=== PATIENT | female | born 1950 | race Two or more races ===

== ENCOUNTER 2018-04-07 16:19 | Inpatient (IN) | payer MEDICARE ==
[~2018-04-07] VITALS: Ht 162.6 cm; Wt 80.6 kg
--- NOTE | 2018-04-07 16:47 | NUR ---
PT TO ED WITH FAMILY FOR RIGHT SIDED ABD PAIN THAT RADIATES TO R FLANK X 1 WEEK, WORSE LAST NIGHT AND THIS AM. CONNECTED TO ALL MONITORS. VSS. MD TO BEDSIDE FOR ASSESSMENT. CALL LIGHT WITHIN REACH NO NEESD AT THIS TIME. AWAITING ORDERS.
[2018-04-07] MEDS ORDERED: ONDANSETRON 2MG/ML, 2ML ONE (16:53)
[2018-04-07] MEDS ORDERED: ONDANSETRON 2MG/ML, 2ML IVPush ONE (17:00)
[2018-04-07] MEDS ORDERED: SODIUM CHLORIDE FLUSH 10ML SYR IVF ONE (17:00)
--- NOTE | 2018-04-07 17:01 | NUR ---
PT TO IMAGING.
--- NOTE | 2018-04-07 17:10 | NUR ---
PT BACK FROM IMAGING. US AT BEDSIDE.
--- NOTE | 2018-04-07 17:24 | NUR ---
US COMPLETE. IV PLACED. LABS DRAWN. MEDICATED PER MAR. FAMILY IS HELPING PT TO RESTROOM FOR UA COLLECTION. VSS. NO NEEDS AT THIS TIME.
[2018-04-07 17:28] LABS: MEAN CORPUSCULAR HEMOGLOBIN 32.6 pg (27.0-34.8); MEAN CORPUSCULAR VOLUME 95.8 fL (80-100); MEAN PLATELET VOLUME 8.8 fL (7.4-10.4); PLATELET COUNT 156 x10^3/uL (130-400); RED BLOOD COUNT 4.59 x10^6/uL (3.82-5.3); RED CELL DISTRIBUTION WIDTH 13.3 % (9.6-15.2)
[2018-04-07 17:40] LABS: ALANINE AMINOTRANSFERASE 113 U/L (12-78); ALBUMIN 3.2 g/dL (3.4-5.0); ANION GAP 9 mmol/L (5-15); CHLORIDE 108 mmol/L (98-107); CREATININE 1.32 mg/dL (0.55-1.02)
[2018-04-07 17:42] LABS: ALKALINE PHOSPHATASE 104 U/L (45-117); BILIRUBIN,TOTAL 1.4 mg/dL (0.2-1.0); TOTAL PROTEIN 7.1 g/dL (6.4-8.2)
[2018-04-07 17:44] LABS: MD YES
[2018-04-07 17:47] LABS: BAND#(MANUAL) 9.79 x10^3/uL; BANDS%(MANUAL) 36 % (0-7); LYMPH#(MANUAL) 0.27 x10^3/uL (1-3.4); LYMPHS% (MANUAL) 1 % (22-44); METAMYELOCYTES# (MANUAL) 0.82 x10^3/uL (0-0); METAMYELOCYTES% (MANUAL) 3 % (0-1); MONOS#(MANUAL) 1.36 x10^3/uL (0.3-2.7); MONOS% (MANUAL) 5 % (2-9); MYELOCYTES# (MANUAL) 0.27 x10^3/uL (0-0); MYELOCYTES% (MANUAL) 1 % (0-0); SEG#(MANUAL) 14.69 x10^3/uL (1.8-6.8); SEGS% (MANUAL) 54 % (42-75)
[2018-04-07 17:48] LABS: <PLATELET ESTIMATE> ADEQUATE; <RBC MORPHOLOGY> NORMAL
[2018-04-07 17:49] LABS: <PLT MORPHOLOGY> NORMAL PLT MORPH
[2018-04-07 17:50] LABS: TOXIC GRAN 1+
--- NOTE | 2018-04-07 18:00 | NUR ---
LAB TO BEDSIDE TO COLLECT BC. UA COLLECTED AND SENT. FAMILY AT BEDSIDE. CONNECTED TO MONITORS. CALL LIGHT WITHIN REACH. VSS. NO NEEDS AT THIS TIME.
[2018-04-07] MEDS ORDERED: SODIUM CHLORIDE 0.9% 1,000 ML IV ONE (18:18)
[2018-04-07 18:20] LABS: CULTURE INDICATED? YES; MICROSCOPIC INDICATED
[2018-04-07] MEDS ORDERED: SODIUM CHLORIDE 0.9% 1,000ML IVBOLUS ONE (18:30)
[2018-04-07] MEDS ORDERED: CEFTRIAXONE PMX 1GM/50ML 50 ML IVPB ONE (18:30)
[2018-04-07] MEDS ORDERED: CEFTRIAXONE PMX 1GM/50ML 50 ML ONE (18:32)
--- NOTE | 2018-04-07 18:38 | NUR ---
IV ABX STARTED AT THIS TIME. VERIFIED BC DRAWN. CALL LIGHT WTIHIN REACH. VSS. NO NEEDS AT THIS TIME.
--- NOTE | 2018-04-07 19:15 | NUR ---
2nd IV strated at this time, pt resting quietly, SR monitor without ectopy, rate 95, B/P 80/30, pulses strong and regular throughout, pt is [place] speaking only, daughter at bedside interpretting, of 46years also at bedside. Note that pt has been feeling poorly for 3 days, denies fevers, note that today pain became worse today and daughter notes that she confused and complained of dizziness. Currently note per daughter pt is AA and O times 4, notes back pain, 10/06. Await hospitalist for admission.
[2018-04-07] MEDS ORDERED: SODIUM CHLORIDE FLUSH 10ML SYR IVF PRN (19:30)
[2018-04-07] MEDS ORDERED: LABETALOL 5MG/ML, 20ML IVPush PRN (20:00)
[2018-04-07] MEDS ORDERED: ACETAMINOPHEN 325 MG TABLET PO PRN (20:00)
[2018-04-07] MEDS ORDERED: hydrALAzine 20 MG/ML, 1ML IVPush PRN (20:00)
[2018-04-07] MEDS ORDERED: GLUCAGON 1 MG IM PRN (20:00)
[2018-04-07] MEDS ORDERED: DEXTROSE 4 GM TAB.CHEW PO PRN (20:00)
[2018-04-07] MEDS ORDERED: ONDANSETRON ODT 4 MG PO PRN (20:00)
[2018-04-07] MEDS ORDERED: DEXTROSE 50%, 50ML SYRINGE IVPush PRN (20:00)
[2018-04-07] MEDS ORDERED: POLYETHYLENE GLYCOL 17 GM PACKET PO PRN (20:00)
[2018-04-07] MEDS ORDERED: IBUPROFEN 600 MG TABLET PO PRN (20:00)
[2018-04-07] MEDS ORDERED: morphine SULFATE 10 MG/ML, 1ML IVPush PRN (20:00)
[2018-04-07] MEDS ORDERED: ONDANSETRON 2MG/ML, 2ML IVPush PRN (20:00)
[2018-04-07] MEDS ORDERED: LACTATED RINGERS 1,000 ML IV SCH ×2 (20:00→22:00)
--- NOTE | 2018-04-07 20:17 | NUR ---
CALL TO DR BERGER AT THIS TIME PT REMAINS HYPOTENSIVE TO CHANGE FROM MED TO TELE. PT REMAINS AA AND O TIMES 4, PULSES STRONG AND REGULAR, UP TO BATHROOM WHICH IS IN ROOM. DR BERGER CALLS BACK AND FEELS THAT THIS IS RIDICULOUS HOWEVER WILL CHANGE ORDER.
--- NOTE | 2018-04-07 20:30 | NUR ---
report to tele nurse at this time, pt remains aa and o times4, guarded prognosis. Wonderful family.
[2018-04-07 21:00] VITALS: BP 86/58
[2018-04-07] MEDS: INSULIN LISPRO 100 UNITS/ML, PEN SQ-INSULIN SCH (21:00)
[2018-04-07 21:19] VITALS: BP_SYST 104; BP_SYST 86; BP_DIAS 58; BP_DIAS 67
[2018-04-07] MEDS: HEPARIN 5,000 UNITS/ML, 1ML SQ SCH (22:09)
[2018-04-07] MEDS: SODIUM CHLORIDE FLUSH 10ML SYR IVF SCH (22:14)
[2018-04-07 22:38] VITALS: BP 104/67
[2018-04-07] MEDS ORDERED: LOVA10TA PO (23:17)
[2018-04-07] MEDS ORDERED: LISI-167 PO (23:17)
[2018-04-08] VITALS (11 sets, daily range): BP systolic 62–97; BP diastolic 34–63
[2018-04-08] MEDS ORDERED: LACTATED RINGERS 1,000 ML IVBOLUS STA ×2 (02:01→03:40)
[2018-04-08 02:52] LABS: MEAN CORPUSCULAR HEMOGLOBIN 32.8 pg (27.0-34.8); MEAN CORPUSCULAR VOLUME 96.6 fL (80-100); MEAN PLATELET VOLUME 8.8 fL (7.4-10.4); PLATELET COUNT 140 x10^3/uL (130-400); RED BLOOD COUNT 3.75 x10^6/uL (3.82-5.3); RED CELL DISTRIBUTION WIDTH 14.2 % (9.6-15.2)
[2018-04-08 02:56] LABS: MD YES
[2018-04-08 03:03] LABS: ALANINE AMINOTRANSFERASE 72 U/L (12-78); ALBUMIN 2.4 g/dL (3.4-5.0); ANION GAP 8 mmol/L (5-15); CALCIUM 7.9 mg/dL (8.5-10.1); CHLORIDE 114 mmol/L (98-107)
[2018-04-08 03:04] LABS: <PLATELET ESTIMATE> ADEQUATE; <PLT MORPHOLOGY> NORMAL PLT MORPH; <RBC MORPHOLOGY> NORMAL; BAND#(MANUAL) 8.86 x10^3/uL; BANDS%(MANUAL) 27 % (0-7); LYMPH#(MANUAL) 1.31 x10^3/uL (1-3.4); LYMPHS% (MANUAL) 4 % (22-44); METAMYELOCYTES# (MANUAL) 1.64 x10^3/uL (0-0); METAMYELOCYTES% (MANUAL) 5 % (0-1); MONOS#(MANUAL) 1.31 x10^3/uL (0.3-2.7); MONOS% (MANUAL) 4 % (2-9); MYELOCYTES# (MANUAL) 0.33 x10^3/uL (0-0); MYELOCYTES% (MANUAL) 1 % (0-0); SEG#(MANUAL) 19.35 x10^3/uL (1.8-6.8); SEGS% (MANUAL) 59 % (42-75)
[2018-04-08 03:06] LABS: ALKALINE PHOSPHATASE 79 U/L (45-117); BILIRUBIN,TOTAL 0.8 mg/dL (0.2-1.0); CREATININE 0.96 mg/dL (0.55-1.02); TOTAL PROTEIN 5.7 g/dL (6.4-8.2)
[2018-04-08] MEDS: LACTATED RINGERS 1,000 ML IV SCH ×4 (06:13→21:30)
[2018-04-08] MEDS: HEPARIN 5,000 UNITS/ML, 1ML SQ SCH ×3 (06:13→21:30)
[2018-04-08] MEDS: INSULIN LISPRO 100 UNITS/ML, PEN SQ-INSULIN SCH ×4 (07:00→21:09)
[2018-04-08] MEDS: CEFTRIAXONE PMX 1GM/50ML 50 ML IV SCH (08:50)
[2018-04-08] MEDS: SODIUM CHLORIDE FLUSH 10ML SYR IVF SCH ×2 (08:57→21:31)
[2018-04-08] MEDS: SENNA/DOCUSATE TABLET PO SCH (08:57)
[2018-04-08 08:59] LABS: MEAN CORPUSCULAR HEMOGLOBIN 32.1 pg (27.0-34.8); MEAN CORPUSCULAR HGB CONC 33.3 g/dL (32.4-35.8); MEAN CORPUSCULAR VOLUME 96.1 fL (80-100); MEAN PLATELET VOLUME 9.3 fL (7.4-10.4); PLATELET COUNT 139 x10^3/uL (130-400); RED BLOOD COUNT 3.95 x10^6/uL (3.82-5.3); RED CELL DISTRIBUTION WIDTH 13.8 % (9.6-15.2)
[2018-04-08 09:02] LABS: ANION GAP 7 mmol/L (5-15); CALCIUM 8.2 mg/dL (8.5-10.1); CHLORIDE 115 mmol/L (98-107); CREATININE 0.85 mg/dL (0.55-1.02)
[2018-04-08 10:09] LABS: MD YES
[2018-04-08 10:13] LABS: <PLATELET ESTIMATE> ADEQUATE; <PLT MORPHOLOGY> NORMAL PLT MORPH; <RBC MORPHOLOGY> NORMAL; LYMPH#(MANUAL) 1.34 x10^3/uL (1-3.4); LYMPHS% (MANUAL) 4 % (22-44)
[2018-04-08 10:14] LABS: BAND#(MANUAL) 8.02 x10^3/uL; BANDS%(MANUAL) 24 % (0-7); MONOS#(MANUAL) 0.67 x10^3/uL (0.3-2.7); MONOS% (MANUAL) 2 % (2-9); SEG#(MANUAL) 23.38 x10^3/uL (1.8-6.8); SEGS% (MANUAL) 70 % (42-75)
[2018-04-08] MEDS ORDERED: POTASSIUM CHLORIDE 20 MEQ TAB.ER.PRT PO ONE (10:30)
[2018-04-08] MEDS ORDERED: SODIUM CHLORIDE 0.9% 1,000ML IVBOLUS ONE (10:30)
[2018-04-08] MEDS ORDERED: METF500T17 PO (12:45)
[2018-04-08] MEDS ORDERED: SIMV10TA3 PO (12:45)
[2018-04-08] MEDS ORDERED: LISI-424 PO (12:45)
[2018-04-08] MEDS ORDERED: FURO20TA3 PO (12:45)
[2018-04-08 15:12] LABS: MEAN CORPUSCULAR HEMOGLOBIN 31.9 pg (27.0-34.8); MEAN CORPUSCULAR HGB CONC 32.9 g/dL (32.4-35.8); MEAN CORPUSCULAR VOLUME 96.9 fL (80-100); MEAN PLATELET VOLUME 9.3 fL (7.4-10.4); PLATELET COUNT 131 x10^3/uL (130-400); RED BLOOD COUNT 3.84 x10^6/uL (3.82-5.3)
[2018-04-08 15:20] LABS: ANION GAP 5 mmol/L (5-15); CALCIUM 8.1 mg/dL (8.5-10.1); CHLORIDE 116 mmol/L (98-107); CREATININE 0.67 mg/dL (0.55-1.02)
[2018-04-08 15:42] LABS: MD YES
[2018-04-08 15:45] LABS: <PLATELET ESTIMATE> DECREASED; <PLT MORPHOLOGY> NORMAL PLT MORPH; <RBC MORPHOLOGY> NORMAL; BAND#(MANUAL) 5.53 x10^3/uL; BANDS%(MANUAL) 19 % (0-7); LYMPH#(MANUAL) 2.33 x10^3/uL (1-3.4); LYMPHS% (MANUAL) 8 % (22-44); METAMYELOCYTES# (MANUAL) 2.62 x10^3/uL (0-0); METAMYELOCYTES% (MANUAL) 9 % (0-1); MONOS#(MANUAL) 1.16 x10^3/uL (0.3-2.7); MONOS% (MANUAL) 4 % (2-9); SEG#(MANUAL) 17.46 x10^3/uL (1.8-6.8); SEGS% (MANUAL) 60 % (42-75)
[2018-04-08 15:46] LABS: TOXIC GRAN 1+
[2018-04-08 15:47] LABS: PMNS WITH VACUOLES 1+
[2018-04-08] MEDS ORDERED: LACTATED RINGERS 1,000 ML IV SCH (20:00)
[2018-04-09] VITALS: BP 106/69
[2018-04-09] MEDS: LACTATED RINGERS 1,000 ML IV SCH ×3 (02:06→11:40)
[2018-04-09 03:51] VITALS: BP 103/65
[2018-04-09 05:25] LABS: MEAN CORPUSCULAR HEMOGLOBIN 32.8 pg (27.0-34.8); MEAN CORPUSCULAR HGB CONC 33.8 g/dL (32.4-35.8); MEAN CORPUSCULAR VOLUME 97.1 fL (80-100); MEAN PLATELET VOLUME 10.1 fL (7.4-10.4); PLATELET COUNT 127 x10^3/uL (130-400); RED BLOOD COUNT 3.75 x10^6/uL (3.82-5.3); RED CELL DISTRIBUTION WIDTH 14.1 % (9.6-15.2)
[2018-04-09 05:35] LABS: ANION GAP 5 mmol/L (5-15); CALCIUM 8.5 mg/dL (8.5-10.1); CHLORIDE 116 mmol/L (98-107)
[2018-04-09 05:36] LABS: CREATININE 0.57 mg/dL (0.55-1.02)
[2018-04-09] MEDS: HEPARIN 5,000 UNITS/ML, 1ML SQ SCH ×3 (06:20→23:48)
[2018-04-09 06:32] LABS: MD YES
[2018-04-09 06:34] LABS: <RBC MORPHOLOGY> NORMAL; BAND#(MANUAL) 3.39 x10^3/uL; BANDS%(MANUAL) 13 % (0-7); EOS#(MANUAL) 0.26 x10^3/uL (0.0-0.4); EOS% (MANUAL) 1 % (1-7); LYMPH#(MANUAL) 3.39 x10^3/uL (1-3.4); LYMPHS% (MANUAL) 13 % (22-44); MONOS#(MANUAL) 1.83 x10^3/uL (0.3-2.7); MONOS% (MANUAL) 7 % (2-9); SEG#(MANUAL) 17.23 x10^3/uL (1.8-6.8); SEGS% (MANUAL) 66 % (42-75)
[2018-04-09 06:35] LABS: <PLATELET ESTIMATE> DECREASED; <PLT MORPHOLOGY> NORMAL PLT MORPH
[2018-04-09] MEDS: INSULIN LISPRO 100 UNITS/ML, PEN SQ-INSULIN SCH ×4 (07:00→21:00)
[2018-04-09 07:28] VITALS: BP 117/76
[2018-04-09] MEDS: SODIUM CHLORIDE FLUSH 10ML SYR IVF SCH ×2 (09:00→21:00)
[2018-04-09] MEDS: SENNA/DOCUSATE TABLET PO SCH (09:00)
[2018-04-09] MEDS: CEFTRIAXONE PMX 1GM/50ML 50 ML IV SCH (09:09)
[2018-04-09 11:49] VITALS: BP 120/79
[2018-04-09 15:42] VITALS: BP 123/74
[2018-04-09 18:40] VITALS: BP 138/79
[2018-04-10] VITALS: BP 126/75
[2018-04-10 04:00] VITALS: BP 113/65
[2018-04-10 05:19] LABS: MEAN CORPUSCULAR HEMOGLOBIN 32.8 pg (27.0-34.8); MEAN CORPUSCULAR VOLUME 96.5 fL (80-100); MEAN PLATELET VOLUME 10.2 fL (7.4-10.4); PLATELET COUNT 128 x10^3/uL (130-400); RED BLOOD COUNT 3.86 x10^6/uL (3.82-5.3); RED CELL DISTRIBUTION WIDTH 13.8 % (9.6-15.2)
[2018-04-10 05:29] LABS: ANION GAP 6 mmol/L (5-15); CALCIUM 8.3 mg/dL (8.5-10.1); CHLORIDE 117 mmol/L (98-107); CREATININE 0.54 mg/dL (0.55-1.02)
[2018-04-10] MEDS ORDERED: LACTATED RINGERS 1,000 ML IV SCH ×2 (05:30)
[2018-04-10 05:43] LABS: MD YES
[2018-04-10 05:45] LABS: <PLATELET ESTIMATE> DECREASED; <PLT MORPHOLOGY> NORMAL PLT MORPH; <RBC MORPHOLOGY> NORMAL; BAND#(MANUAL) 0.58 x10^3/uL; BANDS%(MANUAL) 4 % (0-7); LYMPH#(MANUAL) 1.74 x10^3/uL (1-3.4); LYMPHS% (MANUAL) 12 % (22-44); MONOS#(MANUAL) 0.87 x10^3/uL (0.3-2.7); MONOS% (MANUAL) 6 % (2-9); SEG#(MANUAL) 11.31 x10^3/uL (1.8-6.8); SEGS% (MANUAL) 78 % (42-75)
[2018-04-10 06:04] LABS: HCT (SEDRATE) 37.2 % (34.6-47.8)
[2018-04-10 06:40] VITALS: BP 134/75
[2018-04-10] MEDS: INSULIN LISPRO 100 UNITS/ML, PEN SQ-INSULIN SCH ×4 (07:00→21:00)
[2018-04-10] MEDS ORDERED: POTASSIUM CHLORIDE 20 MEQ TAB.ER.PRT PO ONE (07:00)
[2018-04-10] MEDS: CEFTRIAXONE PMX 1GM/50ML 50 ML IV SCH (08:51)
[2018-04-10] MEDS: SODIUM CHLORIDE FLUSH 10ML SYR IVF SCH ×2 (08:52→21:00)
[2018-04-10] MEDS: HEPARIN 5,000 UNITS/ML, 1ML SQ SCH ×2 (08:52→16:27)
[2018-04-10] MEDS: SENNA/DOCUSATE TABLET PO SCH (08:55)
[2018-04-10 11:47] VITALS: BP 121/78
[2018-04-10 14:14] VITALS: BP 121/78
[2018-04-10 19:45] VITALS: BP 140/78
[2018-04-11 00:20] VITALS: BP 119/70
[2018-04-11] MEDS: HEPARIN 5,000 UNITS/ML, 1ML SQ SCH ×2 (00:35→08:31)
[2018-04-11 06:36] LABS: MEAN CORPUSCULAR HEMOGLOBIN 32.5 pg (27.0-34.8); MEAN CORPUSCULAR HGB CONC 33.9 g/dL (32.4-35.8); MEAN CORPUSCULAR VOLUME 95.8 fL (80-100); MEAN PLATELET VOLUME 9.5 fL (7.4-10.4); PLATELET COUNT 179 x10^3/uL (130-400); RED BLOOD COUNT 4.11 x10^6/uL (3.82-5.3); RED CELL DISTRIBUTION WIDTH 13.5 % (9.6-15.2)
[2018-04-11] MEDS: INSULIN LISPRO 100 UNITS/ML, PEN SQ-INSULIN SCH ×2 (07:00→11:00)
[2018-04-11 07:11] LABS: BASOPHILS # (AUTO) 0.01 x10^3/uL (0-0.1); BASOPHILS % (AUTO) 0 % (0-1); EOSINOPHILS # (AUTO) 0.12 x10^3/uL (0-0.4); EOSINOPHILS % (AUTO) 1 % (1-7); LYMPHOCYTES % (AUTO) 27 % (22-44); MD SCAN; MONOCYTES # (AUTO) 0.67 x10^3/uL (0.2-0.8); MONOCYTES % (AUTO) 8 % (2-9); NEUTROPHILS # (AUTO) 5.54 x10^3/uL (1.8-6.8); NEUTROPHILS % (AUTO) 63 % (42-75)
[2018-04-11 07:33] VITALS: BP 134/74
[2018-04-11] MEDS: SENNA/DOCUSATE TABLET PO SCH (08:31)
[2018-04-11] MEDS: CEFTRIAXONE PMX 1GM/50ML 50 ML IV SCH (08:31)
[2018-04-11] MEDS: SODIUM CHLORIDE FLUSH 10ML SYR IVF SCH (08:32)
[2018-04-11] MEDS ORDERED: CEFDINIR 300 MG CAPSULE PO SCH (09:00)
[2018-04-11] MEDS ORDERED: CEFD300C37 PO (12:17)
[2018-04-11 13:26] VITALS: BP 123/67
== END 2018-04-11 14:03 | disposition home or self-care (01) | DRG 871 ==
LOC: ED 18:50 → EDIP 19:17 → 4EST 21:04 → 4WST 04-08 → DCLOUNGE 04-11 13:53
PROVIDERS: ADMIT Family Medicine; ATTEND Family Medicine
DX: A41.51 Sepsis due to Escherichia coli [E. coli] (principal); N17.0 Acute kidney failure with tubular necrosis; E87.2 Acidosis; N13.6 Pyonephrosis; R65.20 Severe sepsis without septic shock; B96.89 Other specified bacterial agents as the cause of diseases classified elsewhere; E87.6 Hypokalemia; E11.9 Type 2 diabetes mellitus without complications; E78.5 Hyperlipidemia, unspecified; H40.9 Unspecified glaucoma; H54.7 Unspecified visual loss; I10 Essential (primary) hypertension; Z16.11 Resistance to penicillins; Z79.84 Long term (current) use of oral hypoglycemic drugs
CPT/HCPCS: 36415; 74022; 74176; 76700; 80048; 80053; 81001; 82962; 83605; 83690; 84145; 85025; 85651; 86140; 87040; 87077; 87086; 87186; 93005; 96361; 96365; 96375; G0378; J0696; J1644; J2405; J7030; J7120

== ENCOUNTER → 2018-05-08 | Outpatient (CLI) | payer MEDICARE ==
[~2018-05-08] MED LIST: CEFD300C37 PO; FURO20TA3 PO; LISI-167 PO; LISI-424 PO; LOVA10TA PO; METF500T17 PO; SIMV10TA3 PO
== END | disposition home or self-care (01) ==
LOC: CFH 15:58
PROVIDERS: ATTEND Family Medicine
DX: N13.30 Unspecified hydronephrosis (principal)
CPT/HCPCS: 76770